=== PATIENT | female | born 2000 | race Caucasian/White ===

== ENCOUNTER 2023-02-18 09:58 | Emergency (ER) | payer OTHER, SELFPAY ==
[2023-02-18 10:00] VITALS: BP 138/81; PULSE 100; RESP 18; TEMP 36.6; O2SAT 98; BMI 34.5
--- NOTE | 2023-02-18 10:18 | EX.ED.VIS.HA ---
HPI History of Present Illness Chief Complaint: Headache Informant: patient Narrative Narrative: This with a migraine for a few days. This patient does have a history of migraines. But she has not had 1 for a few years. She has even had complex migraines in the past. She has had right-sided weakness with migraines in the past. She has had visual scotoma. Patient states that she started with a headache on . It was mild. Mostly frontal and more on the left side. It is waxed and waned but it does tend to worsen. Today she noticed that her eye was kind of sore and it made her vomit. But she has no visual complaints. She states the pain is really around the eye on the left mostly. No balance difficulties. No numbness tingling weakness. Again, she does not have scotoma with this episode. She has not had fevers or chills. No neck pain or stiffness. No recent trauma or injury. [facility] Medical History (Updated 02/18/23 @ 13:[address] Georgi Pena MD) Migraine Medical History no medical history Allergy/AdvReac Type Severity Reaction Status Date / Time cashew nut Allergy Severe Angioedema Verified 02/18/23 10:03 Surgical History no surgical history Social History Smoking Status: Never smoker ROS ROS ED ROS Narrative A complete review of systems was performed and is negative except as documented in the history of present illness. Some specific details below. Constitutional: No recent fevers or chills. No rigors. She did have some cough and congestion a few days before this. But she states that is really gone now. EYE: No discharge, visual complaints Diony this time, or pain. Pain is really behind the eye on the left. ENT: No difficulty swallowing. No swelling. No sinus pressure or pain. No nasal discharge. No change in hearing. No ear pain. CV: No chest pain, pressure or aching. No palpitations or irregular beats. Patient has not been presyncopal or syncopal. Respiratory: No trouble breathing. No cough. No wheezing. No sputum production. No pain with breathing. GI: No abdominal pain. Patient did have an episode of vomiting last evening when the headache was bad. But the headache is a little bit better now and she is not really nauseated now. No blood was seen in the vomiting. : No frequency dysuria or hematuria. Musculoskeletal: No recent trauma. No pains. No swelling. Skin: No rash. No diaphoresis. Neuro: No weakness or numbness. No difficulty with speaking. No difficulty understanding speech. No visual loss. Please see history of present illness also. Endocrine: No polyuria or polydipsia. EXAM Physical Exam Narrative Exam Narrative: CONSTITUTIONAL: Patient is nontoxic in appearance. The patient looks comfortable. Sitting in a well lit room. HEENT: No notable trauma. Mucous membranes moist. No sinus tenderness. Tympanic membranes are normal. No temporal artery tenderness. No facial rashes or swelling. EYES: No conjunctival injection. No proptosis. No pain with range of motion. Funduscopic exam shows no marked abnormalities. NECK: No meningismus. No JVD. Range of motion is normal looking up down left and right without discomfort. CARDIOVASCULAR: Regular rate. Regular rhythm. No notable murmur. No JVD. RESPIRATORY: No respiratory distress. Breathing is unlabored. No wheezes. No rhonchi. No rales. No pain with a deep breath. GASTROINTESTINAL: Not distended. Bowel sounds are normal. No tenderness. GENITOURINARY: No tenderness over the bladder. No CVA tenderness. MUSCULOSKELETAL: Atraumatic. No peripheral edema. No cord. No tenderness along the deep venous system. No asymmetry. NEUROLOGICAL: Patient is alert and oriented. No focal deficit noted. NIH stroke scale is 0. Normal gait and balance. SKIN: No noted rashes. No diaphoresis. No vesicles noted. PSYCHIATRIC: Patient is calm. Mood is appropriate. Const Vital Signs: 02/18/23 10:00 Temperature 98 F Temperature Source Temporal Pulse Rate 100 Respiratory Rate 18 Blood Pressure 138/81 H Blood Pressure Mean 100 Pulse Ox 98 Oxygen Delivery Method Room Air MDM MDM MDM Narrative Medical decision making narrative: Patient was given IV fluids Benadryl and Compazine. She quickly started getting better. I then let her rest. I checked her again. She states she is now 75 to 80% better. The headache is markedly reduced. There is no photophobia. She is comfortable going home. She has never had neurologic symptoms. There is no meningismus. There is no fevers. There are no concerning portions of her history that would point to intracranial process. She has had history of migraines with similar symptoms. I think we can get her home. I do not think we need to perform a CT here. Discharge Plan Triage Chief Complaint: Headache ED Provider: Georgi Pena Dx/Rx/DC Orders Clinical Impression: Migraine Instructions: ED, Migraine (Classical) Primary Care Provider: Del Monet Referrals: Del Monet, [Primary Care Provider] - 3-5 Days Disposition Disposition: Home, Self Care
[2023-02-18] MEDS: proCHLORPERazine 10 MG/2 ML Vial IV (10:27)
[2023-02-18] MEDS: 0.9% Normal Saline (1000mL) 1,000 ML 999 ML IV (10:27)
[2023-02-18] MEDS: DiphenhydrAMINE 50 MG/ML Syringe IV (10:27)
[2023-02-18 13:30] VITALS: BP 145/86; PULSE 87; RESP 20; O2SAT 99
== END 2023-02-18 13:32 | disposition home or self-care (01) ==
PROVIDERS: Emergency Provider Emergency Medicine; PCP Family Medicine; Visit Provider Emergency Medicine
DX: G43.909 Migraine, unspecified, not intractable, without status migrainosus (principal)
CPT/HCPCS: 96374; 96375; 99283; J7030; A4216